=== PATIENT | male | born 1950 | race Caucasian/White ===

== ENCOUNTER → 2017-01-09 | Outpatient (CLI) | payer MEDICARE ==
[2014-01-17 10:45] VITALS: BP 145/92
[~2017-01-09] MED LIST: ASPI81TA2 PO; ATOR20TA PO; NIAC500T PO
--- NOTE | 2017-01-09 09:00 | KCIC ---
PROCEDURE MRI brain without contrast. HISTORY Essential tremors. Symptoms for 5 years. TECHNIQUE Sagittal T1, axial T1, axial T2, axial FLAIR, axial T2 gradient, coronal T2, and diffusion imaging with ADC map were performed. COMPARISON None. FINDINGS There is symmetric prominence of the ventricles and sulci. A few scattered FLAIR hyperintensities in the supratentorial white matter are nonspecific but most suggestive of minimal small vessel ischemic disease. Similar findings are noted in the prema. There is no acute intracranial hemorrhage or extra-axial fluid collection. There is no mass effect or midline shift there is no restricted diffusion to suggest an acute infarct. Sagittal midline structures are unremarkable. Pituitary and suprasellar region are unremarkable. Intracranial flow voids are preserved. There is ethmoid mucosal thickening. IMPRESSION - No acute intracranial findings. - Brain parenchymal volume loss and minimal probable small-vessel ischemic disease. Electronically signed by: Casey Holcomb MD (January 09, 2017 08:58:43)
== END | disposition home or self-care (01) ==
LOC: KCIC MRI 07:48
PROVIDERS: ATTEND Psychiatry & Neurology Neurology with Special Qualifications in Child Neurology
DX: G25.0 Essential tremor (principal)
CPT/HCPCS: 70551

== ENCOUNTER → 2017-01-27 | Day surgery (SDC) | payer MEDICARE ==
[~2017-01-27] MED LIST changes: +HYDROmorphone 2 MG/ML VIAL IV PRN; +IV RINGERS,LACTATED 1000ML 1,000 ML IV SCH; +LIDOCAINE 1% 1 ML SYRINGE. ID PRN; +MORPHINE SULFATE 2 MG/ML DISP.SYRIN. IV PRN; +ONDANSETRON PF 4 MG/2 ML VIAL. IV PRN; +PROCHLORPERAZINE 10 MG/2 ML VIAL. IV PRN; +PROPOFOL 20 ML IV ONE; +fentaNYL PF VIAL 100 MCG/2 ML VIAL IV PRN
[2017-01-27 07:55] VITALS: BP 151/84
--- NOTE | 2017-01-27 08:43 | HP ---
ADMIT DATE: 01/27/2017 REFERRING PHYSICIAN: Lauren Castellon APRN REASON FOR CONSULTATION: History of colon polyps. HISTORY OF PRESENT ILLNESS: This is a 66-year-old male with past medical history significant for organic heart disease, status post NC; history of colonic polyps, hyperlipidemia, seen for surveillance exam. Bowel habits have been regular without diarrhea or constipation. There has been no melena and/or hematochezia. Weight and appetite have been stable. He is otherwise without additional complaints. PAST MEDICAL HISTORY: Organic heart disease, status post NC; history of colonic polyps, hyperlipidemia. ALLERGIES: None. MEDICATIONS: At the present time include aspirin, atorvastatin. FAMILY AND SOCIAL HISTORY: Significant for organic heart disease with father and sibling. He is social drinker, nonsmoker. PAST SURGICAL HISTORY: Status post cholecystectomy. REVIEW OF SYSTEMS: Per records. PHYSICAL EXAMINATION: GENERAL: Reveals a well-nourished, well-developed male. VITAL SIGNS: Temperature is 98.3, pulse 86, respirations 18. HEENT: Normocephalic and atraumatic head. Pupils and extraocular muscles not tested. Sclerae anicteric. NECK: Supple. LUNGS: Clear. CARDIOVASCULAR: Reveals S1, S2 without S3, S4 or appreciable murmur. ABDOMEN: Reveals soft abdomen, normoactive bowel sounds, without appreciable hepatosplenomegaly. EXTREMITIES: Reveals no cyanosis, clubbing or edema. IMPRESSION: History of colonic polyps. Surveillance exam is recommended at this time. Risks and benefits of procedure including risk of perforation during the operation have been discussed. The patient is willing to proceed. I would like to thank Lauren Castellon for allowing us to consult and participate in the patient's care. STEPHANIE SEWELL MD DR: EMETERIO/milena JOB#: [id number] / [id number]
--- NOTE | 2017-01-30 15:34 | PATHOLOGY ---
PATHOLOGY REPORT * * * * * * * * FINAL DIAGNOSIS: Colorectal biopsies, rectal polyps: - Tubular adenoma (1). - Hyperplastic polyps (2). COMMENT: There is no high-grade dysplasia or evidence of malignancy. REPORT ELECTRONICALLY SIGNED BY: Yonas White M.D. DATE/TIME: 01/30/2017 15:33 * * * * * * * * GROSS PATHOLOGY: Received in formalin labeled "Hi Pickard rectal polyps," are 3 segments of garcia soft tissue measuring 0.4 x 0.4 x 0.2 cm in aggregate dimensions and ranging from 0.2 to 0.4 cm in maximum dimension. The specimen is submitted entirely in cassette A1. (KAH; 01/27/2017) INITIAL CPT CODE(S): A; 03620 Professional services performed by [facility] [place] [address] Technical services performed by [facility] at [address] [place] [address], [facility] [address] [address]. SPECIMEN(S) RECEIVED: A.Rectal polyps CLINICAL HISTORY: History colon polyps PATIENT: HI PICKARD /AGE: 502/07/1950 (Age: 66) PATIENT #: [id number] ALT CASE #: SPECIMEN COLLECTION DATE: 01/27/2017 SPECIMEN RECEIVED DATE: 01/27/2017 [facility] - [address] [place] [address] - PHONE: [phone] * * * END OF REPORT * * *
== END | disposition home or self-care (01) ==
LOC: ENDOS 05:55
PROVIDERS: ATTEND Internal Medicine Gastroenterology
DX: K64.1 Second degree hemorrhoids (principal); K62.1 Rectal polyp; K57.30 Diverticulosis of large intestine without perforation or abscess without bleeding; E78.00 Pure hypercholesterolemia, unspecified; Z90.49 Acquired absence of other specified parts of digestive tract; Z72.0 Tobacco use; Z87.09 Personal history of other diseases of the respiratory system
CPT/HCPCS: 45380; 88305; J2704